=== PATIENT | female | born 1975 | race Caucasian/White ===

== ENCOUNTER 2020-01-15 13:51 | Emergency (ER) | payer SELFPAY ==
[~2020-01-15] VITALS: Ht 172.7 cm; Wt 86.2 kg
[2020-01-15 14:33] LABS: CALCIUM, SERUM 8.4 mg/dL (8.5-10.1); CARBON DIOXIDE 27 mmol/L (21-32); CHLORIDE 104 mmol/L (98-107); CREATININE 0.8 mg/dL (0.6-1.3); GLUCOSE 94 mg/dL (74-106); POTASSIUM 3.9 mmol/L (3.5-5.1); SODIUM SERUM 137 mmol/L (136-145); UREA NITROGEN, BLOOD 19 mg/dL (7-18)
[2020-01-15 14:39] LABS: ALANINE AMINOTRANSFERASE 23 U/L (12-78); ALBUMIN 3.5 g/dL (3.4-5.0); ALCOHOL, BLOOD < 3 mg/dL (0-0); ALKALINE PHOSPHATASE 90 U/L (46-116); ASPARTATE AMINOTRANSFERASE 20 U/L (15-37); BILIRUBIN,DIRECT 0.1 mg/dL (0.0-0.2); BILIRUBIN,TOTAL 0.2 mg/dL (0.2-1.0); TOTAL PROTEIN, SERUM 6.9 g/dL (6.4-8.2)
[2020-01-15 14:40] LABS: ACETAMINOPHEN 0 ug/ml (10-30)
[2020-01-15 14:48] LABS: BASOPHILS # (AUTO) 0.1 /CMM (0.0-0.2); BASOPHILS % (AUTO) 0.8 % (0.0-2.0); EOSINOPHILS % (AUTO) 1.3 % (0.0-6.0); HEMATOCRIT 36 % (33-45); HEMOGLOBIN 11.8 g/dL (11.5-14.8); LYMPHOCYTES # (AUTO) 2.1 /CMM (0.8-4.8); LYMPHOCYTES % (AUTO) 33.2 % (20.0-44.0); MEAN CORPUSCULAR HGB CONC 33 g/dl (31.0-36.0); MEAN CORPUSCULAR VOLUME 93 fL (82-100); MONOCYTES # (AUTO) 0.4 /CMM (0.1-1.30); MONOCYTES % (AUTO) 6.3 % (2.0-12.0); NEUTROPHILS # (AUTO) 3.7 /CMM (1.8-8.9); NEUTROPHILS % (AUTO) 58.4 % (43.0-81.0); PLATELET COUNT (AUTO) 282 /CMM (150-450); RED BLOOD CELL COUNT(AUTO) 3.82 MIL/uL (4.0-5.2); WHITE BLOOD COUNT (AUTO) 6.3 K/uL (4.3-11.0)
--- NOTE | 2020-01-15 15:21 | NUR ---
[facility], TO ER BED 12. SLEEPING, UNABLE TO ARROUSE DESPITE STRONG PAINFUL STIMULI. NOT IN RESP DISTRESS, BREATHING EVEN AND UNLABORED. SATTING AT 98% ON RA. UNABLE TO GET ANY INFORMATION AT THIS TIME. PT IN MONITOR. GOWNED. URINE COLLECTED VIA ON AND OUT CATH WITH STRICT STERILE TECHNIQUE OBSERVED DURING PROCEDURE. MD WAS AT THE BEDSIDE FOR EVAL. ORDERS RECEIVED NOTED AND CARRIED OUT.
[2020-01-15] MEDS ORDERED: NALOXONE HCL 0.4 MG/ML AMPUL IV ONE (15:30)
[2020-01-15] MEDS ORDERED: IV NS 0.9% 1,000 ML IV ONE (15:30)
[2020-01-15] MEDS ORDERED: ONDANSETRON HCL/PF - ER 4 MG/2 ML VIAL IV ONE (15:30)
[2020-01-15] MEDS ORDERED: ONDANSETRON HCL/PF 4 MG/2 ML VIAL ONE (15:40)
[2020-01-15] MEDS ORDERED: NALOXONE PREFILLED SYRINGE 2 MG/2 ML SYRINGE ONE (15:40)
[2020-01-15 15:48] LABS: BILIRUBIN,URINE NEGATIVE (NEGATIVE); BLOOD, URINE NEGATIVE Ery/uL (NEGATIVE); COLOR,URINE YELLOW (YELLOW); LEUKOCYTE ESTERASE ,URINE NEGATIVE (NEGATIVE); NITRITE, URINE NEGATIVE (NEGATIVE); PROTEIN,URINE NEGATIVE (NEGATIVE); UGLUCOSE NEGATIVE (NEGATIVE); UROBILINOGEN,URINE 0.2 EU/dL (0.2)
--- NOTE | 2020-01-15 19:23 | NUR ---
PT IS AWAKE. PT VERBALIZED THAT SHE FOUND A VIAL OF CLONOPIN OUTSIDE [facility] AND TOOK IT. PT IS STAYING IN A REHAB FACILITY CALLED [facility].
--- NOTE | 2020-01-15 19:23 | NUR ---
PT DENIED ANY SUICIDAL NOR HOMICIDAL IDEATION WHEN ASKED.
--- NOTE | 2020-01-15 20:30 | NUR ---
CALLED [facility]. SPOKE WITH YEIMI AND VERIFIED THAT SHE IS A PATIENT THERE. PT WILL BE PICKED UP ONCE SHE IS CLEARED FOR DISCHARGE. CALL [phone]
--- NOTE | 2020-01-15 21:00 | NUR ---
PT'S AMBULATION TESTED BUT PT IS UNSTABLE AND WOBBLY.
--- NOTE | 2020-01-15 23:16 | NUR ---
pt in bed sleeping. nad noted
--- NOTE | 2020-01-16 00:04 | NUR ---
CALLED [facility] REAGARDING PT'S UPDATE.
--- NOTE | 2020-01-16 00:31 | NUR ---
TRIED CALLING FACILITY. NO ANSWER
--- NOTE | 2020-01-16 00:34 | NUR ---
MULTIPLE ATTEMPTS TO CALL FACILITY FOR DC. NO ANSWER.
--- NOTE | 2020-01-16 00:46 | NUR ---
CALLED FACILITY FOR DC. FACILITY WILL YARD MANAGER THE PT
--- NOTE | 2020-01-16 01:15 | NUR ---
PT ROADTESTED. PT AMBULATORY W/ STEADY GAIT. AWARE
--- NOTE | 2020-01-16 01:32 | NUR ---
Patient discharged to home in stable condition. Written and verbal after care instructions given. Patient verbalizes understanding of instruction. Pt assisted to the car w/ Petey. facility area representative
[2020-01-16 01:34] VITALS: BP 107/60
== END 2020-01-16 01:35 | disposition home or self-care (01) ==
LOC: ER 13:58
DX: F13.10 Sedative, hypnotic or anxiolytic abuse, uncomplicated (principal); R07.89 Other chest pain; F17.200 Nicotine dependence, unspecified, uncomplicated
CPT/HCPCS: 36415; 70450; 71045; 80048; 80076; 80299; 80307; 80320; 81003; 85025; 93005; 96361; 96374; 96375; 99285; J2310; J2405 ×2; J7030; G0480